=== PATIENT | female | born 1975 | race Caucasian/White ===

== ENCOUNTER 2018-10-26 12:25 | Emergency (ER) | payer OTHER ==
[2018-10-26 12:41] VITALS: TEMP 98.9
[2018-10-26 13:29] LABS: SQUAMOUS EPITHIAL 2 /hpf (0-5); URINE BACTERIA MOD (<OCC); URINE BILIRUBIN NEGATIVE (NEGATIVE); URINE BLOOD 1+ (NEGATIVE); URINE CLARITY Hazy (Clear); URINE COLOR Yellow (YELLOW); URINE GLUCOSE (UA) NORMAL (Normal); URINE LEUKOCYTE ESTERASE 3+ Leu/uL (Negative); URINE PROTEIN 2+ mg/dL (NEGATIVE)
[2018-10-26 13:30] LABS: HCG,QUALITATIVE URINE NEGATIVE (NEGATIVE)
[2018-10-26] MEDS ORDERED: Sodium Chloride 0.9% 1,000 ML IV ONE (13:40)
--- NOTE | 2018-10-26 13:41 | C.PDOC ---
History Of Present Illness 43 y/o female presents to ED for evaluation of suprapubic abdominal pain gradually develop for "few days" associated with nausea and lower back pain. Patient denies bowel/bladder incontinence, fever, chills, vomiting, diarrhea, recent travel, dysuria, hematuria, urinary frequency or any other complaints at this time. Time Seen by Provider: 10/26/18 13:20 Chief Complaint (Nursing): Abdominal Pain History Per: Patient History/Exam Limitations: no limitations Onset/Duration Of Symptoms: Days Current Symptoms Are (Timing): Still Present Past Medical History Reviewed: Historical Data, Nursing Documentation, Vital Signs Vital Signs: Last Vital Signs Temp 98.9 F 10/26/18 12:37 Pulse 81 10/26/18 12:37 Resp 18 10/26/18 12:37 BP 118/76 10/26/18 12:37 Pulse Ox 100 10/26/18 12:37 - Medical History PMH: No Chronic Diseases Surgical History: No Surg Hx Family History: States: No Known Family Hx - Social History Hx Alcohol Use: No Hx Substance Use: No - Immunization History Hx Tetanus Toxoid Vaccination: No Hx Influenza Vaccination: No Hx Pneumococcal Vaccination: No Review Of Systems Constitutional: Negative for: Fever, Chills Gastrointestinal: Positive for: Nausea, Abdominal Pain. Negative for: Vomiting, Diarrhea Genitourinary: Negative for: Dysuria, Frequency, Hematuria Musculoskeletal: Positive for: Back Pain Skin: Negative for: Rash Physical Exam - Physical Exam Appears: Well, Non-toxic, No Acute Distress Skin: Normal Color, Warm, Dry Head: Normacephalic Eye(s): bilateral: PERRL Nose: No Flaring, No Discharge Oral Mucosa: Moist Throat: No Drooling Neck: Supple Cardiovascular: Rhythm Regular Respiratory: No Decreased Breath Sounds, No Accessory Muscle Use, No Stridor, No Wheezing Gastrointestinal/Abdominal: Soft, Tenderness (mod suprapubic tenderness), No Distention, No Guarding, No Rebound Back: No CVA Tenderness Extremity: Normal ROM, No Deformity, No Swelling Neurological/Psych: Oriented x3, Normal Speech ED Course And Treatment - Laboratory Results Urine POC: Negative O2 Sat by Pulse Oximetry: 100 (RA) Pulse Ox Interpretation: Normal Progress Note: Pt was OBS in ED for 2 hours and reports mod improvement in sx. On re-eval, pt is afebrile, hemodynamicaly stable. Tolerate Po well in ED. Non- toxic. PulseOx 98% RA. Neck: supple, (-) JVD, (-) carotid bruits B/L. ENT: no acute finings. Lungs: CTA B/L, BS equal B/L. CVS: (+)S1S2, reg. Abd:benign, (-) guarding, (-) rebound, (-) localized tenderness. Back: (-) CVA tenderness. UA (+) WBC, RBC, preg (-). Pt has clinical finidngs c/w UTI. Pt advised. re.f to f/u with PMD in 2-3 days for re-eval. return if any worsening or new changes. Disposition Counseled Patient/Family Regarding: Studies Performed, Diagnosis, Need For Followup, Rx Given - Disposition Referrals: Tasha Miller MD [Staff Provider] - [facility] [Outside] Disposition: HOME/ ROUTINE Disposition Time: 14:55 Condition: STABLE Additional Instructions: Encourage fluids take medication as prescribed Follow up with PMD in 2-3 days for re-evaluation. return to ED if any worsening or new changes. 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 - Scribe Statement The provider has reviewed the documentation as recorded by the Justinibhong Valladares All medical record entries made by the Greg were at my direction and personally dictated by me. I have reviewed the chart and agree that the record accurately reflects my personal performance of the history, physical exam, medical decision making, and the department course for this patient. I have also personally directed, reviewed, and agree with the discharge instructions and disposition.
[2018-10-26] MEDS ORDERED: Sodium Chloride 0.9% 1,000 ML ONE (13:57)
[2018-10-26] MEDS ORDERED: cefTRIAXone 1 gm 1 GM/100 ML BAG IVPB ONE (13:57)
[2018-10-26 15:37] VITALS: BP 132/79; PULSE 85; RESP 16
[2018-10-26 18:04] VITALS: O2SAT 100
== END 2018-10-26 15:36 | disposition home or self-care (01) ==
LOC: C.ER 12:25
DX: N39.0 Urinary tract infection, site not specified (principal)
CPT/HCPCS: 81001; 84703; 87086; 87181; 96365; 96375; 99284; J0696; J1885; J2405; J7030